=== PATIENT | male | born 1955 | race Two or more races ===

== ENCOUNTER 2024-02-06 14:21 | Outpatient (RCR) | payer MEDICARE, MEDICAID, SELFPAY | END 2024-02-06 23:59 | disposition home or self-care (01) | LOC: SCTC 14:21 | PROVIDERS: PCP Family Medicine; Referring Provider Radiology Therapeutic Radiology; Visit Provider Radiology Therapeutic Radiology | DX: Z51.0 Encounter for antineoplastic radiation therapy (principal); C61 Malignant neoplasm of prostate; Z90.79 Acquired absence of other genital organ(s); E11.9 Type 2 diabetes mellitus without complications; I10 Essential (primary) hypertension; N52.9 Male erectile dysfunction, unspecified | CPT/HCPCS: 36415; 77300; 77301; 77336; 77338; 77385; 81003; 84153; 99212; A4216; J1642; J7040; G0463 ==

== ENCOUNTER 2024-03-04 10:03 | Outpatient (RCR) | payer MEDICARE, MEDICAID, SELFPAY | END 2024-03-07 23:59 | disposition home or self-care (01) | LOC: SCTC 10:03 | PROVIDERS: PCP Family Medicine; Referring Provider Family Medicine; Visit Provider Radiology Therapeutic Radiology | DX: Z51.0 Encounter for antineoplastic radiation therapy (principal); C61 Malignant neoplasm of prostate; Z90.79 Acquired absence of other genital organ(s) | CPT/HCPCS: 36415; 77336; 77385; 80053; 85025; 85652; 86140 ==

== ENCOUNTER → 2024-03-25 | Outpatient (CLI) | payer MEDICARE, MEDICAID, SELFPAY ==
[2024-03-25 12:14] LABS: Basophils % (Auto) 0 % (0-2.5); Eosinophils # (Auto) 0.6 Thou/mm3 (0.0-0.5); Eosinophils % (Auto) 8 % (0-10); Hematocrit 35.6 % (41.0-53.0); Hemoglobin 11.7 g/dL (13.5-16.0); Immature Granulocytes % (Auto) 0 % (0-0); Immature Granulocytes Auto 0.03 Thou/mm3 (0.00-0.00); Lymphocytes # (Auto) 1.2 Thou/mm3 (1.0-4.8); Lymphocytes % (Auto) 15 % (10-50); Mean Corpuscular HGB Conc 32.9 g/dl (31.0-37.0); Mean Corpuscular Hemoglobin 27.3 pg (25.0-35.0); Mean Corpuscular Volume 83 fL (80-100); Monocytes # (Auto) 0.5 Thou/mm3 (0.0-0.8); Monocytes % (Auto) 7 % (0-12); Neutrophils # (Auto) 5.3 Thou/mm3 (1.8-7.7); Neutrophils % (Auto) 70 % (37-80); Nucleated Red Blood Cell % 0 /100 WBC (0); Platelet Count 202 Thou/mm3 (140-440); RDW Standard Deviation 53.4 fL (35.1-43.9); Red Blood Count 4.28 Miln/mm3 (4.50-5.90); White Blood Count 7.6 Thou/mm3 (3.8-10.6)
[2024-03-25 12:35] LABS: Alanine Aminotransferase 20 U/L (10-49); Albumin, Serum 3.7 gm/dL (3.4-4.8); Albumin/Globulin Ratio 1.1 (1.2-2.2); Alkaline Phosphatase 122 U/L (46-116); Anion Gap 6 (7-16); Aspartate Amino Transferase 20 U/L (0-34); BUN/Creatinine Ratio 31 Ratio (12-20); Bilirubin,Total 1.3 mg/dL (0.3-1.2); Blood Urea Nitrogen 25 mg/dL (9-23); Calcium 8.9 mg/dL (8.3-10.6); Calcium (Corrected) 9.1 mg/dL (8.5-10.1); Carbon Dioxide 28.4 mMol/L (20.0-31.0); Chloride 104 mMol/L (98-107); Creatinine (Component) 0.8 mg/dL (0.6-1.3); Globulin 3.5 gm/dL (2.3-3.5); Glucose 181 mg/dL (74-106); Osmolality,Calculated 285 (275-295); Potassium 3.6 mMol/L (3.4-5.1); Sodium 138 mMol/L (136-145); Total Protein 7.2 gm/dL (5.7-8.2); eGFR > 60 See Note
[2024-03-25 12:38] LABS: Vitamin B12 481 pg/mL (211-911)
[2024-03-25 12:49] LABS: Ferritin 62 ng/mL (10.5-307.3); Iron 105 mcg/dL (65-175); Percent Iron Saturation 34 % (20-55); Prostate Specific Antigen < 0.10 ng/mL (0-4.00); Total Iron Binding Capacity 303 mcg/dL (250-425); Unsaturated Iron Binding 198 (225-295)
== END | disposition home or self-care (01) ==
PROVIDERS: Referring Provider Internal Medicine Hematology & Oncology; Visit Provider Internal Medicine Hematology & Oncology
DX: C61 Malignant neoplasm of prostate (principal)
CPT/HCPCS: 36415; 80053; 82607; 82728; 83540; 83550; 84153; 85025

== ENCOUNTER 2024-04-02 13:50 | Outpatient (RCR) | payer MEDICARE, MEDICAID, SELFPAY ==
--- NOTE | 2024-03-31 09:38 | CTCFLWUP_ITS ---
Patient: KAMRON PHAM : 1955 Page 2 of 2 FOLLOW UP NOTE DATE OF SERVICE: 03/31/2024 NAME: KAMRON PHAM ACCOUNT: [id number] : 1955 AGE: 68 INTERVAL HISTORY: Patient is here to follow up . patient completed radiation . doing well. Minimal incontinence . Does not take calcium and VIT d3 . Feels good and say have no side effects . 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 ONCOLOGY HISTORY: DIAGNOSIS: Malignant neoplasm of prostate [ICD10] C61 DATE OF DIAGNOSIS: 02/2022 STAGE/TNM: Stage 4 a ? locallya dvanced . no mets except in lymph nodes TREATMENT HISTORY: Care?Plan Start?Date Cycle Day Intent Lupron?22.5?mg?q?3?mon 12/19/2023 1 90 Curative?(adjuvant) HISTORY OF PRESENT ILLNESS: Kamron Pham is a 68-year-old SPA speaking male with history of type 2 diabetes, hypertension has the following oncology history. 02/19/2022: Mr. Pham had prostate biopsy done due to elevated PSA of 9.9. Biopsies showed [place] score 4?8 in multiple prostate biopsy samples. 03/06/2022: Mr. Pham had bone scan done. 05/08/2022: Mr. Pham had robotic radical prostatectomy with bilateral pelvic lymph node dis section at [facility] 06/10/2023: PSA less than 0.10. 09/17/2023: Hemoglobin 10.6, MCV 76, WBC 8.6, ANC 5.9, platelets 308,000. Creatinine 1.0 09/23/2023: PSA 0.2 09/26/2023: PET/CT scan 10/15/2023: Ultrasound-guided biopsy of the left axillary lymph node? 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 Tobacco?Pack?per?Day:?0 ETOH?Use:?denies Drug?Note:?denies Social History Note:?lives with daughter son and MEDICATIONS: 1. abiraterone - 500 mg 2 tab Daily 2. Enbrel - 50 mg Weekly 3. glipizide - 5 mg Daily 4. lisinopril - 10 mg Daily 5. Prednisone (Willy) - 5 mg 1 tab Daily 6. Tresiba U-100 Insulin - 25 Units Daily 7. XyzaL - 5 mg Daily Medications Last Reconciled by Joanie Lund MA on 03/31/2024 ALLERGIES: No Known Drug Allergies REVIEW OF SYSTEMS: A complete 14-point review of systems was performed and is negative except as noted in interval histo ry. PHYSICAL EXAMINATION: VITAL SIGNS: PAIN: 0 - No pain ECOG Performance Status: 0 - Asymptomatic and fully active GENERAL APPEARANCE: Appears well, in no apparent distress, appropriately interactive. HEENT: Normocephalic, no temporal wasting, normal conjunctiva, no scleral icterus, normal hearing, li ps without lesions, neck normal range of motion. CARDIOVASCULAR: Not assessed. PULMONARY: Normal respiratory effort, no respiratory distress or use of accessory muscles, speaking i n full sentences, no tachypnea. EXTREMITIES: No pedal edema or cyanosis. SKIN: Normal skin appearance. NEUROLOGIC: Alert and oriented x4. PSHYCHIATRIC: Appropriate affect, mood normal, behavior normal, intact thought and speech. LABORATORY DATA: I have personally reviewed and interpreted each of the patient?s relevant lab tests, abnormal finding s are below: Date 03/25/24 ??WHITE?BLOOD?COUNT?(Thou/mm3) 7.6 ??RED?BLOOD?COUNT?(Miln/mm3) 4.28?L ??HEMOGLOBIN?(gm/dl) 11.7?L ??HEMATOCRIT?(%) 35.6?L ??PLATELET?COUNT?(Thou/mm3) 202 ??NEUTROPHILS?%,?AUTO?(%) 70 ??LYMPH?%,?AUTO?(%) 15 ??NEUTROPHILS,?AUTO?(Thou/mm3) 5.3 ASSESSMENT/PLAN: 1. Stage José (pT3a pN1c M0) Lu[place] score of 9, grade group 5 prostatic adenocarcinoma with extensive perineural invasion and lymphovascular space invasion and multifocal extraprostatic extension. S/p robotic prostatectomy and bilateral pelvic lymph node dissection on 05/08/2022. PET CT scan done on 09/26/2023 showed hypermetabolic bilateral axillary lymphadenopathy lymph node bio psy of the axillary lymph node were reactive with no cancer Patient received radiation followed by Marry Esquivelron prednisone calcium and vitamin D Will continue Zytiga prednisone Lupron calcium and vitamin D for at least 2 years Counseled patient against the risk factor of Zytiga and monitor blood pressure even at home Discussed osteoporosis and sexual dysfunction from Lupron and advised to continue taking calcium and vitamin D 2. Microcytic anemia-resolved stable 3. Type 2 diabetes. Follow with the PCP 4. Hypertension stable follow with the PCP Will see him back in clinic in 2 months with another CBC, CMP and PSA done prior to the visit.. Tele phone appointment sufficient CBC CMP PSA RETURN TO CLINIC: 2 months with a telephone visit BILLING AND COMPLIANCE: I reviewed external records from providers outside my specialty as summarized above. I spent a total of 50 minutes on this patient?s care on the day of their visit excluding time spent related to any bi lled procedures. This time includes time spent with the patient as well as time spent documenting in the medical record, reviewing patients records and tests, obtaining history, placing orders, communi cating with other healthcare professionals, counseling the patient, family or caregiver, and/or care coordination for the diagnoses above. Electronically Signed by: Reyes Dao MD T: 9:36 AM CC: PCP: Ezequiel Durant Referring: Ezequiel Durant This document was completed utilizing speech recognition software. Grammatical errors, random word in sertions, pronoun errors, and incomplete sentences are an occasional consequence of this system due t o software limitations, ambient noise, and hardware issues. Any formal questions or concerns about th e content, text or information contained within the body of this dictation should be directly address ed to the provider for clarification.
--- NOTE | 2024-04-21 11:25 | CTCTRTNOTE_ITS ---
[facility] [address] [place], [place] [address] Weekly Management Date: 03/09/2024 ?? Name: SHARI ANKIT MeloB.: 1955 Account #: ?? A. Patient is currently at 6480 cGy. B. Patient is tolerating treatment well. C. Resume radiation therapy. Completes XRT in two days. Electronically signed by: Js Benítez M.D. 04/21/2024 11:22 AM
== END 2024-04-07 23:59 | disposition home or self-care (01) ==
LOC: SCTC 13:50
PROVIDERS: PCP Family Medicine; Referring Provider Family Medicine; Visit Provider Internal Medicine Hematology & Oncology
DX: Z51.0 Encounter for antineoplastic radiation therapy (principal); Z51.11 Encounter for antineoplastic chemotherapy; C61 Malignant neoplasm of prostate; I10 Essential (primary) hypertension; E11.9 Type 2 diabetes mellitus without complications; Z79.818 Long term (current) use of other agents affecting estrogen receptors and estrogen levels
CPT/HCPCS: 36415; 77336; 77385; 80053; 82607; 82728; 83540; 83550; 84153; 85025; 96402; 99212; J9217; Q3014; G0463

== ENCOUNTER → 2024-05-13 | Outpatient (CLI) | payer MEDICARE, MEDICAID, SELFPAY ==
[2024-05-13 14:56] LABS: Prostate Specific Antigen < 0.10 ng/mL (0-4.00)
== END | disposition home or self-care (01) ==
PROVIDERS: PCP Family Medicine; Referring Provider Urology; Visit Provider Urology
DX: C61 Malignant neoplasm of prostate (principal)
CPT/HCPCS: 36415; 84153

== ENCOUNTER → 2024-05-22 | Outpatient (CLI) | payer MEDICARE, MEDICAID, SELFPAY ==
[2024-05-22 13:20] LABS: Basophils % (Auto) 0 % (0-2.5); Eosinophils # (Auto) 0.4 Thou/mm3 (0.0-0.5); Eosinophils % (Auto) 7 % (0-10); Hematocrit 33.7 % (41.0-53.0); Hemoglobin 11.4 g/dL (13.5-16.0); Immature Granulocytes % (Auto) 0 % (0-0); Immature Granulocytes Auto 0.02 Thou/mm3 (0.00-0.00); Lymphocytes # (Auto) 1.2 Thou/mm3 (1.0-4.8); Lymphocytes % (Auto) 21 % (10-50); Mean Corpuscular HGB Conc 33.8 g/dl (31.0-37.0); Mean Corpuscular Hemoglobin 29.2 pg (25.0-35.0); Mean Corpuscular Volume 86 fL (80-100); Monocytes # (Auto) 0.3 Thou/mm3 (0.0-0.8); Monocytes % (Auto) 5 % (0-12); Neutrophils # (Auto) 3.8 Thou/mm3 (1.8-7.7); Neutrophils % (Auto) 66 % (37-80); Nucleated Red Blood Cell % 0 /100 WBC (0); Platelet Count 201 Thou/mm3 (140-440); RDW Standard Deviation 44.7 fL (35.1-43.9); Red Blood Count 3.91 Miln/mm3 (4.50-5.90); White Blood Count 5.8 Thou/mm3 (3.8-10.6)
[2024-05-22 13:40] LABS: Alanine Aminotransferase 14 U/L (10-49); Albumin, Serum 3.6 gm/dL (3.4-4.8); Albumin/Globulin Ratio 1.1 (1.2-2.2); Alkaline Phosphatase 156 U/L (46-116); Anion Gap 8 (7-16); Aspartate Amino Transferase 14 U/L (0-34); BUN/Creatinine Ratio 29 Ratio (12-20); Bilirubin,Total 0.4 mg/dL (0.3-1.2); Blood Urea Nitrogen 23 mg/dL (9-23); C-Reactive Protein 2.6 mg/dL (0.0-0.9); Calcium 8.9 mg/dL (8.3-10.6); Calcium (Corrected) 9.2 mg/dL (8.5-10.1); Carbon Dioxide 26.4 mMol/L (20.0-31.0); Chloride 107 mMol/L (98-107); Creatinine (Component) 0.8 mg/dL (0.6-1.3); Globulin 3.2 gm/dL (2.3-3.5); Glucose 137 mg/dL (74-106); Osmolality,Calculated 286 (275-295); Potassium 3.9 mMol/L (3.4-5.1); Sodium 141 mMol/L (136-145); Total Protein 6.8 gm/dL (5.7-8.2); eGFR > 60 See Note
[2024-05-22 17:41] LABS: Sed Rate (ESR) 41 mm/hr (0-20)
== END | disposition home or self-care (01) ==
PROVIDERS: PCP Family Medicine; Referring Provider Internal Medicine Rheumatology; Visit Provider Internal Medicine Rheumatology
DX: M05.79 Rheumatoid arthritis with rheumatoid factor of multiple sites without organ or systems involvement (principal); Z79.899 Other long term (current) drug therapy
CPT/HCPCS: 36415; 80053; 85025; 85652; 86140

== ENCOUNTER → 2024-05-22 | Outpatient (BNVA) | payer MEDICARE, MEDICAID, SELFPAY | END | disposition home or self-care (01) | PROVIDERS: PCP Family Medicine; Referring Provider Family Medicine; Visit Provider Urology | DX: C61 Malignant neoplasm of prostate (principal); N39.3 Stress incontinence (female) (male); N52.9 Male erectile dysfunction, unspecified; Z92.3 Personal history of irradiation; E11.9 Type 2 diabetes mellitus without complications; I10 Essential (primary) hypertension | CPT/HCPCS: 81003; 99212; G0463 ==

== ENCOUNTER → 2024-06-01 | Outpatient (CLI) | payer MEDICARE, MEDICAID, SELFPAY | END | disposition home or self-care (01) | LOC: SLDO 11:36 | PROVIDERS: Referring Provider Urology; Visit Provider Urology | DX: N39.0 Urinary tract infection, site not specified (principal) | CPT/HCPCS: 87086 ==

== ENCOUNTER → 2024-06-03 | Outpatient (CLI) | payer MEDICARE, MEDICAID, SELFPAY ==
[2024-06-03 17:44] LABS: Basophils % (Auto) 0 % (0-2.5); Eosinophils # (Auto) 0.3 Thou/mm3 (0.0-0.5); Eosinophils % (Auto) 3 % (0-10); Hematocrit 33.9 % (41.0-53.0); Hemoglobin 11.3 g/dL (13.5-16.0); Immature Granulocytes % (Auto) 0 % (0-0); Immature Granulocytes Auto 0.02 Thou/mm3 (0.00-0.00); Lymphocytes # (Auto) 1.1 Thou/mm3 (1.0-4.8); Lymphocytes % (Auto) 15 % (10-50); Mean Corpuscular HGB Conc 33.3 g/dl (31.0-37.0); Mean Corpuscular Hemoglobin 29.1 pg (25.0-35.0); Mean Corpuscular Volume 87 fL (80-100); Monocytes # (Auto) 0.2 Thou/mm3 (0.0-0.8); Monocytes % (Auto) 3 % (0-12); Neutrophils # (Auto) 5.8 Thou/mm3 (1.8-7.7); Neutrophils % (Auto) 78 % (37-80); Nucleated Red Blood Cell % 0 /100 WBC (0); Platelet Count 191 Thou/mm3 (140-440); Red Blood Count 3.88 Miln/mm3 (4.50-5.90); White Blood Count 7.4 Thou/mm3 (3.8-10.6)
[2024-06-03 18:09] LABS: Prostate Specific Antigen < 0.10 ng/mL (0-4.00)
[2024-06-03 18:13] LABS: Alanine Aminotransferase 11 U/L (10-49); Albumin, Serum 3.7 gm/dL (3.4-4.8); Albumin/Globulin Ratio 1.1 (1.2-2.2); Alkaline Phosphatase 163 U/L (46-116); Anion Gap 8 (7-16); Aspartate Amino Transferase 13 U/L (0-34); BUN/Creatinine Ratio 24 Ratio (12-20); Bilirubin,Total 0.6 mg/dL (0.3-1.2); Blood Urea Nitrogen 19 mg/dL (9-23); Calcium (Corrected) 9.2 mg/dL (8.5-10.1); Carbon Dioxide 26.8 mMol/L (20.0-31.0); Chloride 103 mMol/L (98-107); Creatinine (Component) 0.8 mg/dL (0.6-1.3); Globulin 3.3 gm/dL (2.3-3.5); Glucose 197 mg/dL (74-106); Osmolality,Calculated 282 (275-295); Potassium 4.1 mMol/L (3.4-5.1); Sodium 138 mMol/L (136-145); eGFR > 60 See Note
== END | disposition home or self-care (01) ==
LOC: COPL 16:14 → SCTO 16:15
PROVIDERS: PCP Family Medicine; Referring Provider Internal Medicine Hematology & Oncology; Visit Provider Internal Medicine Hematology & Oncology
DX: C61 Malignant neoplasm of prostate (principal)
CPT/HCPCS: 36415; 80053; 84153; 85025

== ENCOUNTER 2024-07-01 09:41 | Outpatient (RCR) | payer MEDICARE, MEDICAID, SELFPAY ==
--- NOTE | 2024-06-14 21:57 | CTCFLWUP_ITS ---
Patient: KAMRON NOEL : 1955 Page 6 of 7 FOLLOW UP NOTE DATE OF SERVICE: 06/08/2024 NAME: KAMRON NOEL ACCOUNT: [id number] : 1955 AGE: 68 INTERVAL HISTORY: Patient is here to follow up . patient completed radiation . doing well. Minimal incontinence . Does not take calcium and VIT d3 . Feels good and say have no side effects . 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 ONCOLOGY HISTORY: DIAGNOSIS: Malignant neoplasm of prostate [ICD10] C61 Stage José (pT3a pN1c M0) [place] score of 9, grade group 5 prostatic adenocarcinoma with extensive perineural invasion and lymphovascular space invasion and multifocal extraprostatic extension. S/p robotic prostatectomy and bilateral pelvic lymph node dissection on 05/08/2022. Microcytic anemia. DATE OF DIAGNOSIS: 02/2022 STAGE/TNM: Stage 4 a ? locallya dvanced . no mets except in lymph nodes TREATMENT HISTORY: Care?Plan Start?Date Cycle Day Intent Lupron?22.5?mg?q?3?mon 12/19/2023 1 90 Curative?(adjuvant) HISTORY OF PRESENT ILLNESS: Kamron Noel is a 68-year-old SPA speaking male with history of type 2 diabetes, hypertension has the following oncology history. 02/19/2022: Mr. Noel had prostate biopsy done due to elevated PSA of 9.9. Biopsies showed [place] score 4?8 in multiple prostate biopsy samples. 03/06/2022: Mr. Noel had bone scan done. 05/08/2022: Mr. Noel had robotic radical prostatectomy with bilateral pelvic lymph node dissection at [facility] 06/10/2023: PSA less than 0.10. 09/17/2023: Hemoglobin 10.6, MCV 76, WBC 8.6, ANC 5.9, platelets 308,000. Creatinine 1.0 09/23/2023: PSA 0.2 09/26/2023: PET/CT scan 10/15/2023: Ultrasound-guided biopsy of the left axillary lymph node? 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 Tobacco?Pack?per?Day:?0 ETOH?Use:?denies Drug?Note:?denies Social History Note:?lives with daughter son and MEDICATIONS: 1. abiraterone - 500 mg 2 tab Daily 2. Enbrel - 50 mg Weekly 3. lisinopril - 10 mg Daily 4. prednisone - 5 mg 1 tab Daily 5. Tresiba U-100 Insulin - 25 Units Daily 6. XyzaL - 5 mg Daily Medications Last Reconciled by aLine Huntley MA on 06/08/2024 ALLERGIES: No Known Drug Allergies REVIEW OF SYSTEMS: A complete 14-point review of systems was performed and is negative except as noted in interval history. PHYSICAL EXAMINATION: VITAL SIGNS: Temperature?99.6, B/P?149/80, Oxygen?Saturation?97% Weight?191?lbs PAIN: 0 - No pain ECOG Performance Status: 0 - Asymptomatic and fully active GENERAL APPEARANCE: Appears well, in no apparent distress, appropriately interactive. HEENT: Normocephalic, no temporal wasting, normal conjunctiva, no scleral icterus, normal hearing, lips without lesions, neck normal range of motion. CARDIOVASCULAR: Not assessed. PULMONARY: Normal respiratory effort, no respiratory distress or use of accessory muscles, speaking in full sentences, no tachypnea. EXTREMITIES: No pedal edema or cyanosis. SKIN: Normal skin appearance. NEUROLOGIC: Alert and oriented x4. PSHYCHIATRIC: Appropriate affect, mood normal, behavior normal, intact thought and speech. LABORATORY DATA: I have personally reviewed and interpreted each of the patient?s relevant lab tests, abnormal findings are below: Date 05/22/24 06/03/24 ??WHITE?BLOOD?COUNT?(Thou/mm3) 5.8 7.4 ??RED?BLOOD?COUNT?(Miln/mm3) 3.91?L 3.88?L ??HEMOGLOBIN?(gm/dl) 11.4?L 11.3?L ??HEMATOCRIT?(%) 33.7?L 33.9?L ??PLATELET?COUNT?(Thou/mm3) 201 191 ??NEUTROPHILS?%,?AUTO?(%) 66 78 ??LYMPH?%,?AUTO?(%) 21 15 ??NEUTROPHILS,?AUTO?(Thou/mm3) 3.8 5.8 ??GLUCOSE,RANDOM?(mg/dL) 137?H 197?H ??BLOOD?UREA?NITROGEN?(mg/dL) 23 19 ??CREATININE?(mg/dL) 0.80 0.80 ??SODIUM?(mmol/L) 141 138 ??POTASSIUM?(mmol/L) 3.9 4.1 ??CHLORIDE?(mmol/L) 107 103 ??CrCl?(CandG)?(ml/min) 91.53 91.53 ??AST/SGOT?(Unit/L) 14 13 ??ALT/SGPT?(Unit/L) 14 11 ??ALKALINE?PHOSPHATASE?(Unit/L) 156?H 163?H ??BILIRUBIN,?TOTAL?(mg/dL) 0.4 0.6 ??PROTEIN?TOTAL?(gm/dl) 6.8 7.0 ??ALBUMIN,?SERUM?(gm/dl) 3.6 3.7 ??GLOBULIN?(gm/dl) 3.2 3.3 ??ALBUMIN/GLOBULIN?RATIO 1.1?L 1.1?L ??CALCIUM,?SERUM?(mg/dL) 8.9 9.0 ??CALCIUM?SERUM?(CORRECTED)?(mg/dL) 9.2 9.2 ASSESSMENT/PLAN: 1. Stage José (pT3a pN1c M0) [place] score of 9, grade group 5 prostatic adenocarcinoma with extensive perineural invasion and lymphovascular space invasion and multifocal extraprostatic extension. S/p robotic prostatectomy and bilateral pelvic lymph node dissection on 05/08/2022. PET CT scan done on 09/26/2023 showed hypermetabolic bilateral axillary lymphadenopathy lymph node biopsy of the axillary lymph node were reactive with no cancer Patient received radiation followed by Zytiga Lupron prednisone calcium and vitamin D Will continue Zytiga prednisone Lupron calcium and vitamin D for at least 2 years Counseled patient against the risk factor of Zytiga and monitor blood pressure even at home Discussed osteoporosis and sexual dysfunction from Lupron and advised to continue taking calcium and vitamin D 2. Microcytic anemia-will do workup with ferritin iron panel vitamin B12 folic acid and a true protein level 3. Type 2 diabetes. Follow with the PCP 4. Hypertension stable follow with the PCP Will see him back in clinic in 2 months with another CBC, CMP and PSA done prior to the visit.. Telephone appointment sufficient CBC CMP PSA ORDERS: Ferritin iron panel vitamin B12 folic acid erythropoietin level PSA RETURN TO CLINIC: 4 months BILLING AND COMPLIANCE: I reviewed external records from providers outside my specialty as summarized above. I spent a total of 50 minutes on this patient?s care on the day of their visit excluding time spent related to any billed procedures. This time includes time spent with the patient as well as time spent documenting in the medical record, reviewing patients records and tests, obtaining history, placing orders, communicating with other healthcare professionals, counseling the patient, family or caregiver, and/or care coordination for the diagnoses above. Electronically Signed by: {Object.Sanct_ID*[email or web address]@M}, {Object.Sanct_ID*PnP.Suffix@U} D: {Object.Sanct_Date} T: {Object.Sanct_Time} CC: PCP: Ezequiel Durant Referring: Ezequiel Durant This document was completed utilizing speech recognition software. Grammatical errors, random word insertions, pronoun errors, and incomplete sentences are an occasional consequence of this system due to software limitations, ambient noise, and hardware issues. Any formal questions or concerns about the content, text or information contained within the body of this dictation should be directly addressed to the provider for clarification.
== END 2024-07-06 23:59 | disposition home or self-care (01) ==
LOC: SCTC 09:41
PROVIDERS: PCP Family Medicine; Referring Provider Family Medicine; Visit Provider Internal Medicine Hematology & Oncology
DX: Z51.11 Encounter for antineoplastic chemotherapy (principal); C61 Malignant neoplasm of prostate; Z90.79 Acquired absence of other genital organ(s); D50.9 Iron deficiency anemia, unspecified; E11.9 Type 2 diabetes mellitus without complications; I10 Essential (primary) hypertension; R59.0 Localized enlarged lymph nodes
CPT/HCPCS: 96402; 99213; J9217; G0463

== ENCOUNTER → 2024-09-21 | Outpatient (CLI) | payer MEDICARE, MEDICAID, SELFPAY ==
[2024-09-21 16:03] LABS: LDH (Lactate Dehydrogenase) 202 U/L (120-246)
[2024-09-21 16:06] LABS: Ferritin 48 ng/mL (10.5-307.3); Iron 67 mcg/dL (65-175); Percent Iron Saturation 23 % (20-55); Prostate Specific Antigen < 0.10 ng/mL (0-4.00); Total Iron Binding Capacity 287 mcg/dL (250-425); Unsaturated Iron Binding 220 (225-295)
[2024-09-21 16:07] LABS: Folate 10.85 ng/mL (>5.38); Vitamin B12 643 pg/mL (211-911)
[2024-09-28 06:57] LABS: Erythropoietin (EPO)* 20.8 mIU/mL (2.6-18.5)
== END | disposition home or self-care (01) ==
LOC: CDIM 15:08 → SCTO 15:13
PROVIDERS: PCP Family Medicine; Referring Provider Internal Medicine Hematology & Oncology; Visit Provider Internal Medicine Hematology & Oncology
DX: C61 Malignant neoplasm of prostate (principal)
CPT/HCPCS: 36415; 82607; 82668; 82728; 82746; 83540; 83550; 83615; 84153

== ENCOUNTER 2024-09-29 09:46 | Outpatient (RCR) | payer MEDICARE, MEDICAID, SELFPAY ==
--- NOTE | 2024-09-30 23:27 | CTCFLWUP_ITS ---
Patient: KAMRON PHAM : 1955 Page 5 of 8 FOLLOW UP NOTE DATE OF SERVICE: 09/28/2024 NAME: KAMRON PHAM ACCOUNT: [id number] : 1955 AGE: 68 INTERVAL HISTORY: Kamron, a male with prostate cancer, presented for follow-up and medication refills. His history includes ongoing treatment with Zytiga, prednisone, and Lupron initiated January 2024. He reported good medication adherence with only 3 days' supply remaining. 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 Subjective: Chief Complaint Follow-up for prostate cancer treatment, medication refill request History of Present Illness Kamron is a male patient with a history of prostate cancer, presenting for follow-up of his ongoing treatment. He reports good adherence to his current medication regimen, which includes Zytiga, prednisone, and Lupron. The patient states he is doing well with his medications and has been consistently taking his vitamin D supplement as prescribed. He mentions having about 3 days' worth of medication left, indicating he is nearing the end of his current supply. Kamron attempted to refill his prescription when he had 12 days of medication remaining but was informed he needed a new prescription as there were no more refills available. This led him to believe he might have completed his treatment course. Kamron has a Lupron shot scheduled for tomorrow. He continues to take his medications as prescribed and reports no significant side effects or concerns. Medications and Supplements - Zytiga - Prednisone - Lupron - Working well for PSA control - Vitamin D - Taken to keep bones healthy Objective: Laboratory, Imaging, and Diagnostic Test Results - Date: SatSep 28 2024 - PSA: < 0.01 ONCOLOGY HISTORY: DIAGNOSIS: Malignant neoplasm of prostate [ICD10] C61 Stage José (pT3a pN1c M0) [place] score of 9, grade group 5 prostatic adenocarcinoma with extensive perineural invasion and lymphovascular space invasion and multifocal extraprostatic extension. S/p robotic prostatectomy and bilateral pelvic lymph node dissection on 05/08/2022. Microcytic anemia. DATE OF DIAGNOSIS: 02/2022 STAGE/TNM: Stage 4 a ? locallya dvanced . no mets except in lymph nodes TREATMENT HISTORY: Care?Plan Start?Date Cycle Day Intent Lupron?22.5?mg?q?3?mon 12/19/2023 1 90 Curative?(adjuvant) HISTORY OF PRESENT ILLNESS: Kamron Pham is a 68-year-old SPA speaking male with history of type 2 diabetes, hypertension has the following oncology history. 02/19/2022: Mr. Pham had prostate biopsy done due to elevated PSA of 9.9. Biopsies showed [place] score 4?8 in multiple prostate biopsy samples. 03/06/2022: Mr. Pham had bone scan done. 05/08/2022: Mr. Pham had robotic radical prostatectomy with bilateral pelvic lymph node dissection at [facility] 06/10/2023: PSA less than 0.10. 09/17/2023: Hemoglobin 10.6, MCV 76, WBC 8.6, ANC 5.9, platelets 308,000. Creatinine 1.0 09/23/2023: PSA 0.2 09/26/2023: PET/CT scan 10/15/2023: Ultrasound-guided biopsy of the left axillary lymph node? 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 Tobacco?Pack?per?Day:?0 ETOH?Use:?denies Drug?Note:?denies Social History Note:?lives with daughter son and MEDICATIONS: 1. Enbrel - 50 mg Weekly 2. lisinopril - 10 mg Daily 3. Nasal - 0.05 % As needed Medications Last Reconciled by Laine Huntley MA on 09/28/2024 ALLERGIES: No Known Drug Allergies REVIEW OF SYSTEMS: A complete 14-point review of systems was performed and is negative except as noted in interval history. PHYSICAL EXAMINATION: VITAL SIGNS: Temperature?98, B/P?126/72, Oxygen?Saturation?96% PAIN: 0 - No pain ECOG Performance Status: 0 - Asymptomatic and fully active GENERAL APPEARANCE: Appears well, in no apparent distress, appropriately interactive. HEENT: Normocephalic, no temporal wasting, normal conjunctiva, no scleral icterus, normal hearing, lips without lesions, neck normal range of motion. CARDIOVASCULAR: Not assessed. PULMONARY: Normal respiratory effort, no respiratory distress or use of accessory muscles, speaking in full sentences, no tachypnea. EXTREMITIES: No pedal edema or cyanosis. SKIN: Normal skin appearance. NEUROLOGIC: Alert and oriented x4. PSHYCHIATRIC: Appropriate affect, mood normal, behavior normal, intact thought and speech. LABORATORY DATA: I have personally reviewed and interpreted each of the patient?s relevant lab tests, abnormal findings are below: Date 06/03/24 09/21/24 ??WHITE?BLOOD?COUNT?(Thou/mm3) 7.4 ? ??RED?BLOOD?COUNT?(Miln/mm3) 3.88?L ? ??HEMOGLOBIN?(gm/dl) 11.3?L ? ??HEMATOCRIT?(%) 33.9?L ? ??PLATELET?COUNT?(Thou/mm3) 191 ? ??NEUTROPHILS?%,?AUTO?(%) 78 ? ??LYMPH?%,?AUTO?(%) 15 ? ??NEUTROPHILS,?AUTO?(Thou/mm3) 5.8 ? ??GLUCOSE,RANDOM?(mg/dL) 197?H ? ??BLOOD?UREA?NITROGEN?(mg/dL) 19 ? ??CREATININE?(mg/dL) 0.80 ? ??SODIUM?(mmol/L) 138 ? ??POTASSIUM?(mmol/L) 4.1 ? ??CHLORIDE?(mmol/L) 103 ? ??CrCl?(CandG)?(ml/min) 91.53 ? ??AST/SGOT?(Unit/L) 13 ? ??ALT/SGPT?(Unit/L) 11 ? ??ALKALINE?PHOSPHATASE?(Unit/L) 163?H ? ??BILIRUBIN,?TOTAL?(mg/dL) 0.6 ? ??PROTEIN?TOTAL?(gm/dl) 7.0 ? ??ALBUMIN,?SERUM?(gm/dl) 3.7 ? ??GLOBULIN?(gm/dl) 3.3 ? ??ALBUMIN/GLOBULIN?RATIO 1.1?L ? ??CALCIUM,?SERUM?(mg/dL) 9.0 ? ??CALCIUM?SERUM?(CORRECTED)?(mg/dL) 9.2 ? ??LDH,?TOTAL?(Unit/L) ? 202 ??TOTAL?IRON?BINDING?CAP?(S*)?(mcg/dL) ? 287 ??UNBOUND?IBC?(mcg/dL) ? 220?L ASSESSMENT/PLAN: Kamron is a male patient with prostate cancer on Zytiga, prednisone, and Lupron therapy, presenting for follow-up. 1. Stage José (pT3a pN1c M0) [place] score of 9, grade group 5 prostatic adenocarcinoma with extensive perineural invasion and lymphovascular space invasion and multifocal extraprostatic extension. S/p robotic prostatectomy and bilateral pelvic lymph node dissection on 05/08/2022. PET CT scan done on 09/26/2023 showed hypermetabolic bilateral axillary lymphadenopathy lymph node biopsy of the axillary lymph node were reactive with no cancer Patient received radiation followed by Zytiga Lupron prednisone calcium and vitamin D Will continue Zytiga prednisone Lupron calcium and vitamin D for at least 2 years Counseled patient against the risk factor of Zytiga and monitor blood pressure even at home Patient's prostate-specific antigen (PSA) level is less than 0.01, indicating excellent response to current treatment regimen of Zytiga, prednisone, and Lupron. This therapy was initiated in January 2024 and is planned to continue for a total of 2 years, ending in January 2026. Patient reports tolerating the medications well. Plan: - Continue current treatment regimen: Zytiga, prednisone, and Lupron - Send prescription refill today due to patient having only 3 days of medication remaining - Administer scheduled Lupron shot tomorrow - Continue vitamin D supplementation for bone health - Follow-up appointment in 3 months - Continue treatment until January 2026 cussed osteoporosis and sexual dysfunction from Lupron and advised to continue taking calcium and vitamin D 2. Microcytic anemia-will do workup with ferritin iron panel vitamin B12 folic acid and a true protein level 3. Type 2 diabetes. Follow with the PCP 4. Hypertension stable follow with the PCP Will see him back in clinic in 2 months with another CBC, CMP and PSA done prior to the visit.. Telephone appointment sufficient CBC CMP PSA RETURN TO CLINIC: BILLING AND COMPLIANCE: I reviewed external records from providers outside my specialty as summarized above. I spent a total of 50 minutes on this patient?s care on the day of their visit excluding time spent related to any billed procedures. This time includes time spent with the patient as well as time spent documenting in the medical record, reviewing patients records and tests, obtaining history, placing orders, communicating with other healthcare professionals, counseling the patient, family or caregiver, and/or care coordination for the diagnoses above. Electronically Signed by: Reyes Dao MD T: 11:25 PM CC: PCP: Ezequiel Durant Referring: Ezequiel Durant This document was completed utilizing speech recognition software. Grammatical errors, random word insertions, pronoun errors, and incomplete sentences are an occasional consequence of this system due to software limitations, ambient noise, and hardware issues. Any formal questions or concerns about the content, text or information contained within the body of this dictation should be directly addressed to the provider for clarification.
== END 2024-10-05 23:59 | disposition home or self-care (01) ==
LOC: SCTC 09:46
PROVIDERS: PCP Family Medicine; Referring Provider Family Medicine; Visit Provider Internal Medicine Hematology & Oncology
DX: Z51.11 Encounter for antineoplastic chemotherapy (principal); C61 Malignant neoplasm of prostate; Z76.0 Encounter for issue of repeat prescription; E11.9 Type 2 diabetes mellitus without complications; I10 Essential (primary) hypertension; D50.9 Iron deficiency anemia, unspecified
CPT/HCPCS: 96402; 99212; J9217; G0463

== ENCOUNTER → 2024-11-04 | Outpatient (CLI) | payer MEDICARE, MEDICAID, SELFPAY ==
[2024-11-04 17:54] LABS: Prostate Specific Antigen < 0.10 ng/mL (0-4.00)
== END | disposition home or self-care (01) ==
LOC: COPL 15:47
PROVIDERS: PCP Family Medicine; Referring Provider Urology; Visit Provider Urology
DX: C61 Malignant neoplasm of prostate (principal)
CPT/HCPCS: 36415; 84153

== ENCOUNTER → 2024-11-20 | Outpatient (BNVA) | payer MEDICARE, MEDICAID, SELFPAY | END | disposition home or self-care (01) | PROVIDERS: PCP Family Medicine; Referring Provider Family Medicine; Visit Provider Urology | DX: C61 Malignant neoplasm of prostate (principal); N39.3 Stress incontinence (female) (male); N52.9 Male erectile dysfunction, unspecified; Z92.3 Personal history of irradiation; E11.9 Type 2 diabetes mellitus without complications; I10 Essential (primary) hypertension; Z96.653 Presence of artificial knee joint, bilateral; E66.9 Obesity, unspecified; Z68.28 Body mass index [BMI] 28.0-28.9, adult; E78.00 Pure hypercholesterolemia, unspecified | CPT/HCPCS: 81003; 99212; 99213; G0463 ==

== ENCOUNTER → 2024-12-25 | Outpatient (CLI) | payer MEDICARE, MEDICAID, SELFPAY ==
[2024-12-25 13:21] LABS: Basophils # (Auto) 0.0 Thou/mm3 (0.0-0.2); Basophils % (Auto) 0 % (0-2.5); Eosinophils # (Auto) 0.4 Thou/mm3 (0.0-0.5); Eosinophils % (Auto) 5 % (0-10); Hematocrit 33.7 % (41.0-53.0); Hemoglobin 11.3 g/dL (13.5-16.0); Immature Granulocytes Auto 0.02 Thou/mm3 (0.00-0.00); Lymphocytes # (Auto) 1.2 Thou/mm3 (1.0-4.8); Lymphocytes % (Auto) 17 % (10-50); Mean Corpuscular HGB Conc 33.5 g/dl (31.0-37.0); Mean Corpuscular Hemoglobin 29.7 pg (25.0-35.0); Mean Corpuscular Volume 89 fL (80-100); Monocytes # (Auto) 0.2 Thou/mm3 (0.0-0.8); Monocytes % (Auto) 2 % (0-12); Neutrophils # (Auto) 5.5 Thou/mm3 (1.8-7.7); Neutrophils % (Auto) 75 % (37-80); Nucleated Red Blood Cell # 0.00 Thou/mm3 (0.00-0.00); Nucleated Red Blood Cell % 0 /100 WBC (0); Platelet Count 194 Thou/mm3 (140-440); RDW Standard Deviation 48.1 fL (35.1-43.9); Red Blood Count 3.81 Miln/mm3 (4.50-5.90); White Blood Count 7.3 Thou/mm3 (3.8-10.6)
[2024-12-25 13:33] LABS: Alanine Aminotransferase 11 U/L (10-49); Albumin, Serum 3.6 gm/dL (3.4-4.8); Albumin/Globulin Ratio 1.1 (1.2-2.2); Alkaline Phosphatase 139 U/L (46-116); Anion Gap 7 (7-16); Aspartate Amino Transferase 13 U/L (0-34); BUN/Creatinine Ratio 22 Ratio (12-20); Bilirubin,Total 0.9 mg/dL (0.3-1.2); Blood Urea Nitrogen 22 mg/dL (9-23); Calcium 8.8 mg/dL (8.3-10.6); Calcium (Corrected) 9.1 mg/dL (8.5-10.1); Carbon Dioxide 29.8 mMol/L (20.0-31.0); Chloride 104 mMol/L (98-107); Creatinine (Component) 1.0 mg/dL (0.6-1.3); Globulin 3.3 gm/dL (2.3-3.5); Glucose 175 mg/dL (74-106); Osmolality,Calculated 288 (275-295); Potassium 4.1 mMol/L (3.4-5.1); Sodium 141 mMol/L (136-145); Total Protein 6.9 gm/dL (5.7-8.2); eGFR > 60 See Note
[2024-12-25 13:35] LABS: Prostate Specific Antigen < 0.10 ng/mL (0-4.00)
== END | disposition home or self-care (01) ==
LOC: SCTO 12:29
PROVIDERS: PCP Family Medicine; Referring Provider Internal Medicine Hematology & Oncology; Visit Provider Internal Medicine Hematology & Oncology
DX: C61 Malignant neoplasm of prostate (principal)
CPT/HCPCS: 36415; 80053; 84153; 85025

== ENCOUNTER 2024-12-30 14:09 | Outpatient (RCR) | payer MEDICARE, MEDICAID, SELFPAY ==
--- NOTE | 2025-01-04 01:19 | CTCFLWUP_ITS ---
Patient: KAMRON PHAM : 1955 Page 5 of 8 FOLLOW UP NOTE DATE OF SERVICE: 12/29/2024 NAME: KAMRON PHAM ACCOUNT: [id number] : 1955 AGE: 69 INTERVAL HISTORY: Kamron, a male with prostate cancer, presented for follow-up and medication refills. His history includes ongoing treatment with Zytiga, prednisone, and Lupron initiated January 2024. 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 Subjective: Chief Complaint Follow-up for prostate cancer treatment, medication refill request History of Present Illness Kamron is a male patient with a history of prostate cancer, presenting for follow-up of his ongoing treatment. He reports good adherence to his current medication regimen, which includes Zytiga, prednisone, and Lupron. The patient states he is doing well with his medications and has been consistently taking his vitamin D supplement as prescribed. He mentions having about 3 days' worth of medication left, indicating he is nearing the end of his current supply. Kamron attempted to refill his prescription when he had 12 days of medication remaining but was informed he needed a new prescription as there were no more refills available. This led him to believe he might have completed his treatment course. Kamron has a Lupron shot scheduled for tomorrow. He continues to take his medications as prescribed and reports no significant side effects or concerns. Medications and Supplements - Zytiga - Prednisone - Lupron - Working well for PSA control - Vitamin D - Taken to keep bones healthy Objective: Laboratory, Imaging, and Diagnostic Test Results - Date: SatSep 28 2024 - PSA: < 0.01 ONCOLOGY HISTORY:?[facility] Hx? DIAGNOSIS: Malignant neoplasm of prostate [ICD10] C61 Stage José (pT3a pN1c M0) [place] score of 9, grade group 5 prostatic adenocarcinoma with extensive perineural invasion and lymphovascular space invasion and multifocal extraprostatic extension. S/p robotic prostatectomy and bilateral pelvic lymph node dissection on 05/08/2022. Microcytic anemia. DATE OF DIAGNOSIS: 02/2022 STAGE/TNM: Stage 4 a ? locallya dvanced . no mets except in lymph nodes TREATMENT HISTORY: Care?Plan Start?Date Cycle Day Intent Lupron?22.5?mg?q?3?mon 12/19/2023 1 90 Curative?(adjuvant) HISTORY OF PRESENT ILLNESS: Kamron Pham is a 69-year-old SPA speaking male with history of type 2 diabetes, hypertension has the following oncology history. 02/19/2022: Mr. Pham had prostate biopsy done due to elevated PSA of 9.9. Biopsies showed Luz Marina score 4?8 in multiple prostate biopsy samples. 03/06/2022: Mr. Pham had bone scan done. 05/08/2022: Mr. Pham had robotic radical prostatectomy with bilateral pelvic lymph node dissection at [facility] 06/10/2023: PSA less than 0.10. 09/17/2023: Hemoglobin 10.6, MCV 76, WBC 8.6, ANC 5.9, platelets 308,000. Creatinine 1.0 09/23/2023: PSA 0.2 09/26/2023: PET/CT scan 10/15/2023: Ultrasound-guided biopsy of the left axillary lymph node? 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 Tobacco?Pack?per?Day:?0 ETOH?Use:?denies Drug?Note:?denies Social History Note:?lives with daughter son and MEDICATIONS: 1. abiraterone - 500 mg 2 tab Daily 2. Enbrel - 50 mg Weekly 3. lisinopril - 10 mg Daily 4. Nasal - 0.05 % As needed 5. prednisone - 5 mg 1 tab Daily?Palabra Meds? Medications Last Reconciled by Laine Smart MD on 12/29/2024 ALLERGIES: No Known Drug Allergies REVIEW OF SYSTEMS: A complete 14-point review of systems was performed and is negative except as noted in interval history. PHYSICAL EXAMINATION:?[facility] PE? VITAL SIGNS: Temperature?97.7, B/P?141/68, Oxygen?Saturation?94% Weight?180?lbs PAIN: 0 - No pain GENERAL APPEARANCE: Appears well, in no apparent distress, appropriately interactive. HEENT: Normocephalic, no temporal wasting, normal conjunctiva, no scleral icterus, normal hearing, lips without lesions, neck normal range of motion. CARDIOVASCULAR: Not assessed. PULMONARY: Normal respiratory effort, no respiratory distress or use of accessory muscles, speaking in full sentences, no tachypnea. EXTREMITIES: No pedal edema or cyanosis. SKIN: Normal skin appearance. NEUROLOGIC: Alert and oriented x4. PSHYCHIATRIC: Appropriate affect, mood normal, behavior normal, intact thought and speech. LABORATORY DATA: I have personally reviewed and interpreted each of the patient?s relevant lab tests, abnormal findings are below: Date 09/21/24 12/25/24 ??WHITE?BLOOD?COUNT?(Thou/mm3) ? 7.3 ??RED?BLOOD?COUNT?(Miln/mm3) ? 3.81?L ??HEMOGLOBIN?(gm/dl) ? 11.3?L ??HEMATOCRIT?(%) ? 33.7?L ??PLATELET?COUNT?(Thou/mm3) ? 194 ??NEUTROPHILS?%,?AUTO?(%) ? 75 ??LYMPH?%,?AUTO?(%) ? 17 ??NEUTROPHILS,?AUTO?(Thou/mm3) ? 5.5 ??GLUCOSE,RANDOM?(mg/dL) ? 175?H ??BLOOD?UREA?NITROGEN?(mg/dL) ? 22 ??CREATININE?(mg/dL) ? 1.00 ??SODIUM?(mmol/L) ? 141 ??POTASSIUM?(mmol/L) ? 4.1 ??CHLORIDE?(mmol/L) ? 104 ??CrCl?(CandG)?(ml/min) ? 72.04 ??AST/SGOT?(Unit/L) ? 13 ??ALT/SGPT?(Unit/L) ? 11 ??ALKALINE?PHOSPHATASE?(Unit/L) ? 139?H ??BILIRUBIN,?TOTAL?(mg/dL) ? 0.9 ??PROTEIN?TOTAL?(gm/dl) ? 6.9 ??ALBUMIN,?SERUM?(gm/dl) ? 3.6 ??GLOBULIN?(gm/dl) ? 3.3 ??ALBUMIN/GLOBULIN?RATIO ? 1.1?L ??CALCIUM,?SERUM?(mg/dL) ? 8.8 ??CALCIUM?SERUM?(CORRECTED)?(mg/dL) ? 9.1 ??LDH,?TOTAL?(Unit/L) 202 ? ??TOTAL?IRON?BINDING?CAP?(S*)?(mcg/dL) 287 ? ??UNBOUND?IBC?(mcg/dL) 220?L ? ASSESSMENT/PLAN:?Karel Dao Assessment/Plan? Kamron is a male patient with prostate cancer on Zytiga, prednisone, and Lupron therapy, presenting for follow-up. 1. Stage José (pT3a pN1c M0) Luz Marina score of 9, grade group 5 prostatic adenocarcinoma with extensive perineural invasion and lymphovascular space invasion and multifocal extraprostatic extension. S/p robotic prostatectomy and bilateral pelvic lymph node dissection on 05/08/2022. PET CT scan done on 09/26/2023 showed hypermetabolic bilateral axillary lymphadenopathy lymph node biopsy of the axillary lymph node were reactive with no cancer Patient received radiation followed by Zytiga Lupron prednisone calcium and vitamin D Will continue Zytiga prednisone Lupron calcium and vitamin D for at least 2 years Counseled patient against the risk factor of Zytiga and monitor blood pressure even at home Patient's prostate-specific antigen (PSA) level is less than 0.01, indicating excellent response to current treatment regimen of Zytiga, prednisone, and Lupron. This therapy was initiated in January 2024 and is planned to continue for a total of 2 years, ending in January 2026. Patient reports tolerating the medications well. Plan: - Continue current treatment regimen: Zytiga, prednisone, and Lupron - Send prescription refill today - Administer scheduled Lupron shot tomorrow - Continue vitamin D supplementation for bone health - Follow-up appointment in 3 months - Continue treatment until January 2026 continue taking calcium and vitamin D 2. Microcytic anemia-will do workup with ferritin iron panel vitamin B12 folic acid and a true protein level 3. Type 2 diabetes. Follow with the PCP 4. Hypertension stable follow with the PCP Will see him back in clinic in 2 months with another CBC, CMP and PSA done prior to the visit CBC CMP PSA RETURN TO CLINIC: I reviewed the diagnosis, prognosis, and recommended treatment/procedure options with the patient (and/or their legal appliance service representative), including the potential benefits, risks, side effects and alternative therapies. We also discussed the option of no treatment and the possibility of clinical trial participation, if applicable. All questions were addressed, and they demonstrated understanding. They provided informed consent to proceed with the proposed plan of care. BILLING AND COMPLIANCE: I reviewed external records from providers outside my specialty as summarized above. I spent a total of 50 minutes on this patient?s care on the day of their visit excluding time spent related to any billed procedures. This time includes time spent with the patient as well as time spent documenting in the medical record, reviewing patients records and tests, obtaining history, placing orders, communicating with other healthcare professionals, counseling the patient, family or caregiver, and/or care coordination for the diagnoses above. Electronically Signed by: Reyes Dao MD T: 1:17 AM CC: PCP: Ezequiel Durant Referring: Ezequiel Durant This document was completed utilizing speech recognition software. Grammatical errors, random word insertions, pronoun errors, and incomplete sentences are an occasional consequence of this system due to software limitations, ambient noise, and hardware issues. Any formal questions or concerns about the content, text or information contained within the body of this dictation should be directly addressed to the provider for clarification.
== END 2025-01-05 23:59 | disposition home or self-care (01) ==
LOC: SCTC 14:09
PROVIDERS: PCP Family Medicine; Referring Provider Family Medicine; Visit Provider Internal Medicine Hematology & Oncology
DX: Z51.11 Encounter for antineoplastic chemotherapy (principal); C61 Malignant neoplasm of prostate; Z76.0 Encounter for issue of repeat prescription; Z90.79 Acquired absence of other genital organ(s); R59.0 Localized enlarged lymph nodes; Z92.3 Personal history of irradiation; D50.9 Iron deficiency anemia, unspecified; E11.9 Type 2 diabetes mellitus without complications; I10 Essential (primary) hypertension
CPT/HCPCS: 96402; 99212; J9217; G0463

== ENCOUNTER 2025-01-18 09:40 | Day surgery (SDC) | payer MEDICARE, MEDICAID, SELFPAY ==
[2025-01-18] VITALS (12 sets, daily range): BP systolic 116–147; BP diastolic 65–76; PULSE 68–80; RESP 14–20; TEMP 36.4–37.3; O2SAT 93–100; BMI 27.3
[2025-01-18] MEDS: SODIUM CHLORIDE 0.9% 500 ML 500 ML 20 ML IV (11:48)
[2025-01-18] MEDS: fentaNYL CIT INJ 50 mCg/ML AMP 2ML (ASD USE ONLY) IVP (11:48)
[2025-01-18] MEDS: MIDAZOLAM INJ 1 MG/ML VIAL 2 ML (ASD USE ONLY) 2 MG IVP (11:48)
== END 2025-01-18 13:25 | disposition home or self-care (01) ==
PROVIDERS: PCP Family Medicine; Referring Provider Specialist; Visit Provider Specialist
PROC: 0DBE8ZX Excision of Large Intestine, Via Natural or Artificial Opening Endoscopic, Diagnostic (ICD-10-PCS; CPT 45380; principal; 2025-01-18 11:00)
PROC: (CPT 43239; 2025-01-18 11:00)
DX: K55.21 Angiodysplasia of colon with hemorrhage (principal); K64.1 Second degree hemorrhoids; D50.9 Iron deficiency anemia, unspecified; K57.30 Diverticulosis of large intestine without perforation or abscess without bleeding; I10 Essential (primary) hypertension; Z79.899 Other long term (current) drug therapy
CPT/HCPCS: 45382; A4649; J1200; J2250; J3010; J7999